=== PATIENT | female | born 1955 | race Caucasian/White ===

== ENCOUNTER 2019-01-19 11:11 | Emergency (ER) | payer BC ==
--- NOTE | 2019-01-19 11:43 | C.PDOC ---
History Of Present Illness 63 y/o female with no significant PMHx presents to the ED for evaluation s/p fall last night. Patient is now complaining of right rib pain. States that she fell down last night and hit her head. Denies any LOC. Patient reports due to a previous bad experience in a hospital she did not seek medical attention immediately, and instead made an appointment with a clinic today. She went to see Dr. Smiley this morning, and was referred to the ED for CT Head. Patient denies any chest pain, SOB, nausea, vomiting, visual changes, severe headache, extremity weakness, numbness, or other injuries. - HPI Time Seen by Provider: 01/19/19 11:20 Chief Complaint (Nursing): Trauma History Per: Patient History/Exam Limitations: no limitations Injury Occurred (Timing): Days Ago: (1) Past Medical History Reviewed: Historical Data, Nursing Documentation, Vital Signs Vital Signs: Last Vital Signs Temp 97.7 F 01/19/19 11:14 Pulse 74 01/19/19 11:14 Resp 18 01/19/19 11:14 BP 131/79 01/19/19 11:14 Pulse Ox 98 01/19/19 11:14 - Medical History PMH: GERD Surgical History: No Surg Hx Family History: States: No Known Family Hx - Social History Hx Tobacco Use: No Hx Alcohol Use: No Hx Substance Use: No - Immunization History Hx Influenza Vaccination: No Hx Pneumococcal Vaccination: No Review Of Systems Except As Marked, All Systems Reviewed And Found Negative. Constitutional: Negative for: Fever Eyes: Negative for: Vision Change Cardiovascular: Negative for: Chest Pain, Palpitations Respiratory: Negative for: Cough, Shortness of Breath Gastrointestinal: Negative for: Nausea, Vomiting Musculoskeletal: Positive for: Other (Right rib pain). Negative for: Back Pain Skin: Negative for: Rash, Lesions Neurological: Negative for: Weakness, Numbness, Headache, Dizziness Physical Exam - Physical Exam Appears: Non-toxic, No Acute Distress Skin: Warm, Dry, No Ecchymosis Head: Atraumatic, Normacephalic, No Swelling (or hematoma), No Laceration Eye(s): bilateral: Normal Inspection, PERRL, EOMI Nose: Normal Oral Mucosa: Moist Neck: Normal ROM, No Midline Cervical Tenderness, No Paracervical Tenderness, Supple Chest: Symmetrical, Tenderness (over the right rib cage, near lateral aspect of breast) Cardiovascular: Rhythm Regular, No Murmur, No JVD Respiratory: Normal Breath Sounds, No Accessory Muscle Use Gastrointestinal/Abdominal: Soft, No Tenderness, No Distention Extremity: Bilateral: Atraumatic, Normal Color And Temperature, Normal ROM Neurological/Psych: Oriented x3, Normal Cranial Nerves, Normal Motor, Normal Sensation Gait: Steady ED Course And Treatment O2 Sat by Pulse Oximetry: 98 (on RA) Pulse Ox Interpretation: Normal - Other Rad R Rib Series X-Ray: Read By Radiologist Interpretation: Accession No. : [id number]. Patient Name / ID : ORIANA SAM / [id number]. Exam Date : 01/19/2019 11:48:37 ( Approved ). Study Comment : Sex / Age : F / 63Y. Creator : Shelly Chowdary MD. Dictator : Shelly Chowdary MD. Concrete Paving Supervisor : Internal Communications Specialist : Shelly Chowdary MD. Approver2 : Report Date : 01/19/2019 13:01:54. My Comment : . Date of service: 01/19/2019. PROCEDURE: Radiographs of the Chest and Right Ribs. HISTORY: r/o fx. COMPARISON: None available. TECHNIQUE: Frontal radiograph of the chest and multiple oblique radiographs of the right ribs were obtained. 4 views obtained. FINDINGS: RIGHT RIBS: No acute rib fracture or focal lesion visualized. LUNGS: Clear. PLEURA: No pneumothorax or pleural fluid. CARDIOVASCULAR: Normal cardiac size. No pulmonary vascular congestion. No aortic atherosclerotic calcification present. OTHER FINDINGS: None. IMPRESSION: No acute rib fracture. Clear lungs. - CT Scan/US Head CT Other Rad Studies (CT/US): Read By Radiologist, Radiology Report Reviewed CT/US Interpretation: Accession No. : [id number]. Patient Name / ID : ORIANA SAM / [id number]. Exam Date : 01/19/2019 12:03:27 ( Approved ). Study Comment : Sex / Age : F / 63Y. Creator : Josefina Contreras. Dictator : Daniel Escoto MD. Concrete Paving Supervisor : Internal Communications Specialist : Daniel Escoto MD. Approver2 : Report Date : 01/19/2019 12:21:59. My Comment : . Date of service: 01/19/2019. PROCEDURE: CT HEAD WITHOUT CONTRAST. HISTORY: Head injury. COMPARISON: None available. TECHNIQUE: Axial computed tomography images were obtained through the head/brain without intravenous contrast. Radiation dose: Total exam DLP = 981.94 mGy-cm. This CT exam was performed using one or more of the following dose reduction techniques: Automated exposure control, adjustment of the mA and/or kV according to patient size, and/or use of iterative reconstruction technique. FINDINGS: HEMORRHAGE: No intracranial hemorrhage. BRAIN: No mass effect or edema. Scattered focal lucencies in the subcortical and periventricular white matter suggestive for chronic microvascular ischemic change. Punctate left caudate head calcification. Punctate left basal ganglia/external capsule lacunar infarct. Diffuse generalized parenchymal atrophy. Cerebellar atrophy. VENTRICLES: Unremarkable. No hydrocephalus. CALVARIUM: Unremarkable. PARANASAL SINUSES: Unremarkable as visualized. No significant inflammatory changes. MASTOID AIR CELLS: Unremarkable as visualized. No inflammatory changes. OTHER FINDINGS: Prominent soft tissue swelling overlying the frontal cortex. Intracranial arterial calcifications. IMPRESSION: No acute intracranial abnormality. Prominent soft tissue swelling overlying the frontal cortex. Chronic microvascular ischemic change. Punctate left basal ganglia lacunar infarct. If symptoms persists, consider correlation with MRI. Medical Decision Making Medical Decision Making: Impression: s/p fall, r/o head trauma, r/o rib fracture Plan: - Head CT - Right rib series x-ray - Patient already took Tylenol this AM, will defer additional pain medication until studies are complete Imaging reviewed. CT is negative. X-ray shows no acute fractures. Patient counseled regarding findings and course of discharge. Disposition Counseled Patient/Family Regarding: Studies Performed, Diagnosis, Need For Followup - Disposition Referrals: Cheryl Smiley MD [Staff Provider] - Disposition: HOME/ ROUTINE Disposition Time: 13:09 Condition: STABLE Prescriptions: Acetaminophen [Tylenol] 650 mg PO Q4 #20 capsule Instructions: Minor Head Injury (DC), Bruised Rib Forms: [facility] (Setswana) - POA Present On Arrival: None - Clinical Impression Clinical Impression: Head trauma, Contusion of rib on right side - Scribe Statement The provider has reviewed the documentation as recorded by the Destiney Marquez Provider Attestation: All medical record entries made by the Destiney were at my direction and personally dictated by me. I have reviewed the chart and agree that the record accurately reflects my personal performance of the history, physical exam, medical decision making, and the department course for this patient. I have also personally directed, reviewed, and agree with the discharge instructions and disposition.
[2019-01-19 11:48] VITALS: RESP 18
--- NOTE | 2019-01-19 12:41 | CT ---
Date of service: 01/19/2019 PROCEDURE: CT HEAD WITHOUT CONTRAST. HISTORY: Head injury. COMPARISON: None available. TECHNIQUE: Axial computed tomography images were obtained through the head/brain without intravenous contrast. Radiation dose: Total exam DLP = 981.94 mGy-cm. This CT exam was performed using one or more of the following dose reduction techniques: Automated exposure control, adjustment of the mA and/or kV according to patient size, and/or use of iterative reconstruction technique. FINDINGS: HEMORRHAGE: No intracranial hemorrhage. BRAIN: No mass effect or edema. Scattered focal lucencies in the subcortical and periventricular white matter suggestive for chronic microvascular ischemic change. Punctate left caudate head calcification. Punctate left basal ganglia/external capsule lacunar infarct. Diffuse generalized parenchymal atrophy. Cerebellar atrophy. VENTRICLES: Unremarkable. No hydrocephalus. CALVARIUM: Unremarkable. PARANASAL SINUSES: Unremarkable as visualized. No significant inflammatory changes. MASTOID AIR CELLS: Unremarkable as visualized. No inflammatory changes. OTHER FINDINGS: Prominent soft tissue swelling overlying the frontal cortex. Intracranial arterial calcifications. IMPRESSION: No acute intracranial abnormality. Prominent soft tissue swelling overlying the frontal cortex. Chronic microvascular ischemic change. Punctate left basal ganglia lacunar infarct. If symptoms persists, consider correlation with MRI.
[2019-01-19 13:00] VITALS: BP 100/64; PULSE 59; TEMP 98.7
--- NOTE | 2019-01-19 13:05 | RAD ---
Date of service: 01/19/2019 PROCEDURE: Radiographs of the Chest and Right Ribs. HISTORY: r/o fx COMPARISON: None available. TECHNIQUE: Frontal radiograph of the chest and multiple oblique radiographs of the right ribs were obtained. 4 views obtained. FINDINGS: RIGHT RIBS: No acute rib fracture or focal lesion visualized. LUNGS: Clear. PLEURA: No pneumothorax or pleural fluid. CARDIOVASCULAR: Normal cardiac size. No pulmonary vascular congestion. No aortic atherosclerotic calcification present OTHER FINDINGS: None. IMPRESSION: No acute rib fracture. Clear lungs.
[2019-01-19 13:32] VITALS: O2SAT 98
== END 2019-01-19 13:15 | disposition home or self-care (01) ==
LOC: C.ER 11:11
DX: S09.90XA Unspecified injury of head, initial encounter (principal); W19.XXXA Unspecified fall, initial encounter; S20.211A Contusion of right front wall of thorax, initial encounter